=== PATIENT | female | born 1970 | race Two or more races ===

== ENCOUNTER 2024-12-05 20:59 | Emergency (ER) | payer OTHER ==
[~2024-12-05] VITALS: Ht 152.4 cm; Wt 63.5 kg
[2024-12-05 23:37] VITALS: BP 123/76; TEMP 98.6; O2SAT 99
== END 2024-12-05 23:38 | disposition home or self-care (01) ==
LOC: ER 21:10
DX: M54.2 Cervicalgia (principal); R07.89 Other chest pain; E11.9 Type 2 diabetes mellitus without complications; V43.62XA Car passenger injured in collision with other type car in traffic accident, initial encounter; Y93.89 Activity, other specified; Y92.488 Other paved roadways as the place of occurrence of the external cause; Y99.8 Other external cause status
CPT/HCPCS: 71046; 72040-TC